=== PATIENT | female | born 2000 | race Caucasian/White ===

== ENCOUNTER 2020-07-31 12:23 | Emergency (ER) | payer BC ==
[~2020-07-31] VITALS: Ht 172.7 cm; Wt 82.0 kg
[2020-07-31] MEDS ORDERED: IV NORMAL SALINE 1000ML BAG 1,000 ML IV ONE (13:15)
[2020-07-31] MEDS ORDERED: PROCHLORPERAZINE 10 MG/2 ML VIAL. IV ONE (13:15)
[2020-07-31 13:47] LABS: BASO % 0 % (0-3); EOS % 0 % (0-3); HEMOGLOBIN 12.7 g/dL (12.0-15.5); LYMPH # 0.6 x10^3/uL (1.0-4.8); LYMPH % 6 % (24-48); MEAN CORPUSCULAR HEMOGLOBIN 27 pg (25-35); MEAN CORPUSCULAR HGB CONC 33 g/dL (31-37); MEAN CORPUSCULAR VOLUME 81 fL (79-100); MONO # 0.5 x10^3/uL (0.0-1.1); MONO % 5 % (0-9); NEUT # 9.2 x10^3/uL (1.8-7.7); NEUT % 89 % (31-73); PLATELET COUNT 282 x10^3/uL (140-400); RED CELL DISTRIBUTION WIDTH 16.1 % (11.5-14.5); WHITE BLOOD COUNT 10.3 x10^3/uL (4.0-11.0)
[2020-07-31 13:49] LABS: CALCIUM 8.5 mg/dL (8.5-10.1); CREATININE 0.7 mg/dL (0.6-1.0); GFR 106.7
[2020-07-31 13:55] LABS: ALBUMIN 3.2 g/dL (3.4-5.0); ALBUMIN/GLOBULIN RATIO 0.8 (1.0-1.7); TOTAL BILIRUBIN 0.6 mg/dL (0.2-1.0); TOTAL PROTEIN 7.1 g/dL (6.4-8.2)
[2020-07-31 14:38] LABS: % BANDS 18 % (0-9); % LYMPHS 6 % (24-48); % SEGS 76 % (35-66); PLT ESTIMATE ADEQUATE (ADEQUATE)
--- NOTE | 2020-07-31 15:10 | RAD ---
EXAM: US OB Limited CLINICAL HISTORY: Reason: vomiting unable to find FHT at bedside / Spl. Instructions: / History: . COMPARISON: None available. TECHNIQUE: Limited transabdominal ultrasound of the uterus was performed. FINDINGS: There is a single living intrauterine in breech position. heart rate is 155 bpm. Plac enta is posterior. Cervix measures 3.8 cm. biometry: Biparietal diameter: 4.3 cm, 18 weeks 2 days Head circumference: 14.97 cm, 18 weeks 0 days Abdominal circumference: 12.80 cm, 18 weeks 3 days Femur length: 2.56 cm, 17 weeks 5 days. HC/AC ratio: 1.17 Estimated weight: 223 g Estimated gestational age by ultrasound: 18 weeks 1 day. Sonographic EDC: 12/31/2020 IMPRESSION: 1. Single living intrauterine with gestational age by ultrasound 18 weeks 1 day. Estimated weight 223 g. 2. heart rate is 155 bpm. Electronically signed by: Yasmin Rdz MD (07/31/2020 3:08 PM) [id number]
[2020-07-31 15:58] LABS: BILIRUBIN,URINE NEGATIVE (NEG); CLARITY,URINE CLOUDY; COLOR,URINE AMBER; NITRITE,URINE NEGATIVE (NEG); PROTEIN,URINE NEGATIVE (NEG-TRACE); UROBILINOGEN,URINE 0.2 mg/dL (0.2 mg/dL)
--- NOTE | 2020-07-31 16:15 | PHYS DOC ---
Past Medical History Past Medical History: No Pertinent History Past Surgical History: Smoking Status: Never Smoker Alcohol Use: None General Adult EDM: Chief Complaint: VOMITING IN HPI: HPI: Patient is a 20 year old female 2 para 1 currently 18 weeks presenting to the ED today complaining of nausea and vomiting since last night. Patient denies any abdominal pain. Denies any back pain. Denies any hematemesis. She states she follows up with her own OB for care. Elder crawford states she tried taking Zofran with no relief. Review of Systems: Review of Systems: Constitutional: Denies fever or chills. [] Eyes: Denies change in visual acuity. [] HENT: Denies nasal congestion or sore throat. [] Respiratory: Denies cough or shortness of breath. [] Cardiovascular: Denies chest pain or edema. [] GI: Reports , nausea and vomiting. Denies abdominal pain, bloody stools or diarrhea. [] : Denies dysuria. [] Musculoskeletal: Denies back pain or joint pain. [] Integument: Denies rash. [] Neurologic: Denies headache, focal weakness or sensory changes. [] Psychiatric: Denies depression or anxiety. [] Heart Score: C/O Chest Pain: N/A Risk Factors: Risk Factors: DM, Current or recent (<one month) smoker, HTN, HLP, family h istory of CAD, obesity. Risk Scores: Score 0 - 3: 2.5% MACE over next 6 weeks - Discharge Home Score 4 - 6: 20.3% MACE over next 6 weeks - Admit for Clinical Observation Score 7 - 10: 72.7% MACE over next 6 weeks - Early Invasive Strategies Current Medications: Current Medications Medications (Trade) Dose Ordered Sig/Ngozi Start Time Stop Time Status Last Admin Dose Admin Prochlorperazine Edisylate (Compazine) 10 mg 1X ONCE 07/31/20 13:15 07/31/20 13:29 DC 07/31/20 13:25 10 MG Sodium Chloride 1,000 ml @ 1,000 mls/hr 1X ONCE 07/31/20 13:15 07/31/20 14:14 DC 07/31/20 13:25 1,000 MLS/HR Allergies: Allergies: Allergies Coded Allergies Type Severity Reaction Last Updated Verified No Known Drug Allergies 07/31/20 No Physical Exam: PE: Constitutional: Well developed, well nourished, no acute distress, non-toxic appearance. [] HENT: Normocephalic, atraumatic, bilateral external ears normal, oropharynx moist, no oral exudates, nose normal. [] Eyes: PERRLA, EOMI, conjunctiva normal, no discharge. [] Neck: Normal range of motion, no tenderness, supple, no stridor. [] Cardiovascular:Heart rate regular rhythm, no murmur [] Lungs & Thorax: Bilateral breath sounds clear to auscultation [] Abdomen: Bowel sounds normal, soft, no tenderness, no masses, no pulsatile masses. [] Skin: Warm, dry, no erythema, no rash. [] Back: No tenderness, no CVA tenderness. [] Extremities: No tenderness, no cyanosis, no clubbing, ROM intact, no edema. [] Neurologic: Alert and oriented X 3, normal motor function, normal sensory function, no focal deficits noted. [] Psychologic: Affect normal, judgement normal, mood normal. [] Current Patient Data: Labs: Laboratory Tests Test 07/31/20 13:30 White Blood Count 10.3 x10^3/uL (4.0-11.0) Red Blood Count 4.70 x10^6/uL (3.50-5.40) Hemoglobin 12.7 g/dL (12.0-15.5) Hematocrit 38.0 % (36.0-47.0) Mean Corpuscular Volume 81 fL (79-100) Mean Corpuscular Hemoglobin 27 pg (25-35) Mean Corpuscular Hemoglobin Concent 33 g/dL (31-37) Red Cell Distribution Width 16.1 % (11.5-14.5) H Platelet Count 282 x10^3/uL (140-400) Neutrophils (%) (Auto) 89 % (31-73) H Lymphocytes (%) (Auto) 6 % (24-48) L Monocytes (%) (Auto) 5 % (0-9) Eosinophils (%) (Auto) 0 % (0-3) Basophils (%) (Auto) 0 % (0-3) Neutrophils # (Auto) 9.2 x10^3/uL (1.8-7.7) H Lymphocytes # (Auto) 0.6 x10^3/uL (1.0-4.8) L Monocytes # (Auto) 0.5 x10^3/uL (0.0-1.1) Eosinophils # (Auto) 0.0 x10^3/uL (0.0-0.7) Basophils # (Auto) 0.0 x10^3/uL (0.0-0.2) Segmented Neutrophils % 76 % (35-66) H Band Neutrophils % 18 % (0-9) H Lymphocytes % 6 % (24-48) L Platelet Estimate Adequate (ADEQUATE) Giant Platelets Occ Sodium Level 138 mmol/L (136-145) Potassium Level 4.0 mmol/L (3.5-5.1) Chloride Level 104 mmol/L (98-107) Carbon Dioxide Level 22 mmol/L (21-32) Anion Gap 12 (6-14) Blood Urea Nitrogen 10 mg/dL (7-20) Creatinine 0.7 mg/dL (0.6-1.0) Estimated GFR (Cockcroft-Gault) 106.7 BUN/Creatinine Ratio 14 (6-20) Glucose Level 89 mg/dL (70-99) Calcium Level 8.5 mg/dL (8.5-10.1) Total Bilirubin 0.6 mg/dL (0.2-1.0) Aspartate Amino Transferase (AST) 12 U/L (15-37) L Alanine Aminotransferase (ALT) 16 U/L (14-59) Alkaline Phosphatase 122 U/L (46-116) H Total Protein 7.1 g/dL (6.4-8.2) Albumin 3.2 g/dL (3.4-5.0) L Albumin/Globulin Ratio 0.8 (1.0-1.7) L Laboratory Tests 07/31/20 13:30 Laboratory Tests 07/31/20 13:30 Vital Signs: Vital Signs Date Time Temp Pulse Resp B/P (MAP) Pulse Ox O2 Delivery O2 Flow Rate FiO2 07/31/20 13:19 98.3 124 16 111/73 (86) 95 Room Air 98.3 EKG: EKG: [] Radiology/Procedures: Radiology/Procedures: []PROCEDURE: OB LIMITED EXAM: US OB Limited CLINICAL HISTORY: Reason: vomiting unable to find FHT at bedside / Spl. Instructions: / History: . COMPARISON: None available. TECHNIQUE: Limited transabdominal ultrasound of the uterus was performed. FINDINGS: There is a single living intrauterine in breech position. heart rate is 155 bpm. Placenta is posterior. Cervix measures 3.8 cm. biometry: Biparietal diameter: 4.3 cm, 18 weeks 2 days Head circumference: 14.97 cm, 18 weeks 0 days Abdominal circumference: 12.80 cm, 18 weeks 3 days Femur length: 2.56 cm, 17 weeks 5 days. HC/AC ratio: 1.17 Estimated weight: 223 g Estimated gestational age by ultrasound: 18 weeks 1 day. Sonographic EDC: 12/31/2020 IMPRESSION: 1. Single living intrauterine with gestational age by ultrasound 18 weeks 1 day. Estimated weight 223 g. 2. heart rate is 155 bpm. Electronically signed by: Yasmin Rzd MD (07/31/2020 3:08 PM) [id number] DICTATED and SIGNED BY: YASMIN RDZ MD DATE: 07/31/20 [id number] 0 Course & Med Decision Making: Course & Med Decision Making Pertinent Labs and Imaging studies reviewed. (See chart for details) This is a 20-year-old female patient 2 para 1 currently 18 weeks presenting today with nausea and vomiting in . Symptoms since last night. OB nurses were unable to find heart tones. Official ultrasound was ordered, ultrasound noted for single IUP, 18 weeks 1 day, heart rate 155. CBC with a normal WBC, normal hemoglobin and hematocrit, noted for bandemia. CMP no acute findings, UA negative for infection. Discussed bandemia with DR. Small. Bandemia could be stress response. Given IV fluids and nausea medicine. Feeling better. Discharge to home. Follow-up with OB in the course of this week or next week Suresh Disclaimer: Suresh Disclaimer: This electronic medical record was generated, in whole or in part, using a voice recognition dictation system. Departure Departure Impression: Primary Impression: Vomiting during Disposition: 01 HOME / SELF CARE / HOMELESS Condition: STABLE Referrals: NO PCP (PCP) Follow-up with your [facility] in the course of this week Patient Instructions: Diet - Hyperemesis Gravidarum, Hyperemesis Gravidarum Additional Instructions: You were evaluated in the emergency room for nausea and vomiting in . Please push fluids. Follow-up with your [facility] in the course of this week or next week. Come back to the ED at any point symptoms worsen Scripts Promethazine Hcl (PROMETHAZINE HCL) 12.5 Mg Tablet 1 TAB PO Q6-8HRS, #20 TAB 0 Refills Prov: GEORGE LEGER APRN 07/31/20 GEORGE LEGER APRN Jul 31, 2020 16:15
[2020-07-31 16:27] LABS: BACTERIA,URINE FEW /HPF (0-FEW); RBC,URINE 0 /HPF (0-2)
[2020-07-31] MEDS ORDERED: PROM12.58 PO (17:02)
[2020-07-31 17:20] VITALS: BP 101/61
== END 2020-07-31 17:20 | disposition home or self-care (01) ==
LOC: ER 12:23
DX: O21.9 Vomiting of pregnancy, unspecified (principal); Z3A.18 18 weeks gestation of pregnancy
CPT/HCPCS: 36415; 76815; 80053; 81001; 85007; 85025; 87086; 96361; 96374; 99285; J0780; J7030